=== PATIENT | female | born 1970 | race Hispanic/Latino ===

== ENCOUNTER 2019-05-18 20:28 | Emergency (ER) | payer OTHER, SELFPAY ==
--- NOTE | 2019-05-18 21:04 | RAD ---
EXAM: Chest PA and lateral: HISTORY: Shortness of breath following an pneumonia diagnosis COMPARISON: 05/29/2018 FINDINGS: Heart size:Within normal limits. Lungs:Clear of acute process. No confluent pneumonia, overt edema, pleural effusion, or other acute process. IMPRESSION: No significant acute intrathoracic disease.
[2019-05-18 21:42] LABS: #Eosinphils 0.4 thou/uL (0.0-0.7); #Lymphocytes 3.1 thou/uL (1.20-3.40); #Monocytes 0.6 thou/uL (0.11-0.59); #Neutrophils 7.4 thou/uL (1.40-6.50); %Basophils 0.3 % (0.0-1.0); %Eosinophils 3.5 % (0.0-10.0); %Monocytes 5.4 % (0.0-10.0); %Neutrophils 63.9 % (42.0-75.0); Hemoglobin 11.7 g/dL (12.0-16.0); Mean Corpuscular HGB CONC 32.6 g/dL (32.0-36.0); Mean Corpuscular Hemoglobin 27.1 pg (27.0-31.0); Mean Corpuscular Volume 83.2 fL (78.0-98.0); Mean Platelet Volume 7.2 fL (7.4-10.4); Platelet Count 495 thou/uL (130-400); RBC Distribution Width 13.9 % (11.5-14.5); Red Blood Cell (RBC) Count 4.31 mill/uL (4.20-5.40); White Blood Cell (WBC) Count 11.7 thou/uL (4.8-10.8)
[2019-05-18 22:02] LABS: ALT (SGPT) 19 U/L (8-55); AST (SGOT) 13 U/L (5-34); Albumin 3.7 g/dL (3.5-5.0); Alkaline Phosphatase 87 U/L (40-150); Anion Gap 12 mmol/L (10-20); BUN (Urea Nitrogen) 14 mg/dL (7.0-18.7); Bilirubin, Total 0.2 mg/dL (0.2-1.2); Calc. Creatinine Clearance 0 mL/min (70-130); Calcium 8.4 mg/dL (7.8-10.44); Carbon Dioxide 26 mmol/L (22-29); Chloride 105 mmol/L (98-107); Estimated GFR-MDRD 89; Glucose 92 mg/dL (70-105); Potassium 3.3 mmol/L (3.5-5.1); Protein, Total 6.7 g/dL (6.0-8.3); Sodium 140 mmol/L (136-145)
[2019-05-19] MEDS ORDERED: HYDROcodone/Acetaminophen 10/325 mg Tablet ONE (00:22)
== END 2019-05-19 00:27 | disposition home or self-care (01) ==
LOC: ERS 20:28
DX: J18.9 Pneumonia, unspecified organism (principal); E78.5 Hyperlipidemia, unspecified; M19.90 Unspecified osteoarthritis, unspecified site; F32.9 Major depressive disorder, single episode, unspecified; F17.210 Nicotine dependence, cigarettes, uncomplicated; Z79.899 Other long term (current) drug therapy
CPT/HCPCS: 36415; 71046; 80053; 83880; 84484; 85025; 93005; 94760

== ENCOUNTER 2019-12-27 19:25 | Inpatient (IN) | payer OTHER, SELFPAY ==
[2019-12-27] MEDS ORDERED: Dexamethasone 4 mg/ml Vial ONE (20:17)
[2019-12-27] MEDS ORDERED: predniSONE 20 MG TAB ONE (20:17)
[2019-12-27] MEDS ORDERED: HYDROcodone/Acetaminophen 10/325 mg Tablet ONE (20:18)
[2019-12-27] MEDS ORDERED: Albuterol Sulfate 2.5 mg/0.5 ml Neb ONE (20:18)
--- NOTE | 2019-12-27 20:37 | RAD ---
ONE VIEW CHEST: 12/27/19 COMPARISON: 05/23/10, 05/18/19 HISTORY: Bilateral rib pain. FINDINGS: Normal cardiac silhouette. The costophrenic angles are clear. Bibasilar infiltrates, superimposed upo n chronic change. No pneumothorax. No acute osseous abnormalities. IMPRESSION: 1. Bibasilar infiltrates superimposed upon chronic change. Continued surveillance to ensure reso lution. 2. If there is concern for rib pain, consider rib radiograph series. POS: PPP
[2019-12-27 20:51] LABS: Actual Bicarbonate (HCO3a) 22.4 mEq/L (22-28); Analyzer IN Cardio ER; Base Excess (BEa) -1.2 mEq/L (-2.0 to +3.0); Calcium, Ionized 1.13 mmol/L (1.12-1.30); Carboxyhemoglobin (COHb) 0.6 gm% (0.0-3.0); Hemoglobin (Hb) 13.3 g/dL (12.0-16.0); O2 Tension (PaO2) 75.7 mmHg (80.0-100.0); Potassium - ABG Lab 3.54 mmol/L (3.70-5.30); pH, Arterial 7.44 (7.35-7.45)
[2019-12-27] MEDS ORDERED: Magnesium 2 GM/50 ML BAG (IN WATER) ONE (21:06)
[2019-12-27 21:13] LABS: #Basophils 0.1 thou/uL (0.0-0.2); #Eosinphils 0.4 thou/uL (0.0-0.7); #Lymphocytes 2.1 thou/uL (1.20-3.40); #Monocytes 0.5 thou/uL (0.11-0.59); #Neutrophils 11.9 thou/uL (1.40-6.50); %Basophils 0.5 % (0.0-1.0); %Eosinophils 2.8 % (0.0-10.0); %Lymphocytes 13.7 % (21.0-51.0); %Monocytes 3.3 % (0.0-10.0); %Neutrophils 79.7 % (42.0-75.0); Hemoglobin 12.8 g/dL (12.0-16.0); Mean Corpuscular HGB CONC 32.2 g/dL (32.0-36.0); Mean Corpuscular Hemoglobin 28.2 pg (27.0-31.0); Mean Corpuscular Volume 87.6 fL (78.0-98.0); Mean Platelet Volume 8.6 fL (7.4-10.4); Platelet Count 311 thou/uL (130-400); RBC Distribution Width 13.8 % (11.5-14.5); Red Blood Cell (RBC) Count 4.55 mill/uL (4.20-5.40); White Blood Cell (WBC) Count 14.9 thou/uL (4.8-10.8)
[2019-12-27 21:35] LABS: ALT (SGPT) 8 U/L (8-55); AST (SGOT) 14 U/L (5-34); Albumin 3.5 g/dL (3.5-5.0); Alkaline Phosphatase 85 U/L (40-110); Anion Gap 14 mmol/L (10-20); BUN (Urea Nitrogen) 7 mg/dL (7.0-18.7); Bilirubin, Total 0.3 mg/dL (0.2-1.2); Calc. Creatinine Clearance 0 mL/min (70-130); Calcium 8.2 mg/dL (7.8-10.44); Carbon Dioxide 21 mmol/L (22-29); Chloride 110 mmol/L (98-107); Estimated GFR-MDRD Greater than 90; Globulin 2.7 g/dL (2.4-3.5); Glucose 102 mg/dL (70-105); Potassium 3.6 mmol/L (3.5-5.1); Protein, Total 6.2 g/dL (6.0-8.3); Sodium 141 mmol/L (136-145)
[2019-12-27] MEDS ORDERED: Bacteriostatic Water 30 ML VIAL FS PRN (22:23)
--- NOTE | 2019-12-27 23:20 | PDOC.EVN ---
Event Note - Event Note Event Note: [id number] HP
[2019-12-28 00:11] VITALS: BMI 40.8
[2019-12-28] MEDS: cefTRIAXone\\ROCEPHIN 1 GM in Sodium Chloride 0.9% 100 ML IVPB SCH ×2 (00:30→22:20)
[2019-12-28] MEDS: Azithromycin 500 MG in Sodium Chloride 0.9% 250 ML 250 ML IVPB SCH ×2 (00:31→23:59)
[2019-12-28] MEDS: methylPREDNISolone Sod Succ 40 MG VIAL IVP SCH ×4 (01:45→18:49)
--- NOTE | 2019-12-28 02:45 | HP ---
CHIEF COMPLAINT: Shortness of breath. HISTORY OF PRESENT ILLNESS: Ms. Sepulveda is a 49-year-old female with long history of cigarette smoking, hypertension, arthritis, presents to the emergency room with coughing, shortness of breath, and bilateral rib pain. The patient also has been having upper respiratory tract symptoms with nasal congestion, runny nose, sneezing, fever, and productive cough. The shortness of breath is worse with exertion. In the emergency room, the patient was in respiratory distress, wheezing. The patient was given prednisone, antibiotic, Levaquin, magnesium, and breathing treatments. Some minimal improvement. The patient is being admitted to hospital for further management. PAST MEDICAL HISTORY: 1. Cigarette smoking. 2. Hypertension. 3. Hyperlipidemia. 4. Arthritis. PAST SURGICAL HISTORY: 1. Tubal ligation. 2. section. 3. Left oophorectomy. PAST PSYCHIATRIC HISTORY: Depression. SOCIAL HISTORY: The patient has a long history of smoking. She quit one week ago. FAMILY HISTORY: Reviewed and noncontributory. ALLERGIES: ALLERGIC TO KETOROLAC, PENICILLIN, TORADOL, AND VANCOMYCIN. HOME MEDICATIONS: Please see home medication reconciliation form for updated medications. PHYSICAL EXAMINATION: GENERAL: The patient is awake, alert, in moderate distress. VITAL SIGNS: Blood pressure 108/63, pulse is 100, respiratory rate is 20, temperature 98.5, and oxygen saturation is 98%. HEAD: Normocephalic, atraumatic. NECK: Supple. CHEST: Bilateral expiratory wheeze. HEART: S1, S2. Regular. ABDOMEN: Soft, nontender. Bowel sounds present. NEUROLOGIC: Awake, alert, and oriented x3. PSYCH: Normal mood. EXTREMITIES: No clubbing or cyanosis. GENITOURINARY: No suprapubic tenderness. No flank tenderness. LABORATORY DATA: WBC count 14.9. ABG: PH 7.44, pCO2 74, and PO2 75. ASSESSMENT: 1. Acute exacerbation of chronic obstructive pulmonary disease. 2. Long history of cigarette smoking, quit one week ago. 3. Hypertension. 4. Hyperlipidemia. 5. Obesity. PLAN: 1. Admit. 2. Continue with bronchodilators schedule as needed. 3. IV steroids. 4. Oxygen to keep saturation more than 92%. 5. Empiric antibiotics. 6. Reconcile home medications. 7. DVT prophylaxis as appropriate. 8. Expected length of stay 2 midnights or more. Job ID: [id number]
--- NOTE | 2019-12-28 11:26 | CON ---
DATE OF CONSULTATION: HISTORY OF PRESENT ILLNESS: Rosina Sepulveda is a 49-year-old morbidly obese female, 46 kg, who presented with several-day history of low-grade fever, cough, congestion, yellow sputum. Initially, started with a head cold, settled in the chest with significant chest pain post coughing. X-ray taken shows bilateral lower lobe infiltrates. She says she wheezes when she catches a cold. She has smoked up until about a month ago a pack a day. Three prior histories of pneumonia, but no history of TB. Asthmatic condition when she has a cold. PAST MEDICAL HISTORY: Depression, arthritis, and hyperlipidemia. PAST SURGICAL HISTORY: Including , oophorectomy. SOCIAL HISTORY: Unemployed. Lives with , who is disabled. ALLERGIES: PENICILLIN, VANCOMYCIN. REVIEW OF SYSTEMS: Otherwise, 10-point negative. PHYSICAL EXAMINATION: VITAL SIGNS: On examination, temperature 97, pulse 91, respiratory rate 18, saturations are 100% on room air, and blood pressure 119/70. CHEST: Minimal wheezing. CARDIAC: Normal S1 and S2. No gallops. ABDOMEN: No masses. LABORATORY DATA: Blood gases were done, which shows a pO2 of 75, pCO2 of 34%, pH of 7.40. Lytes are normal. White count is 14,000, H and H of 12 and 39, left shift. ASSESSMENT: 1. Chronic obstructive pulmonary disease exacerbation. 2. Bronchitis. 3. Pneumonia. 4. Former smoker. 5. Depression. 6. Obesity. PLAN: Agree with present antibiotics. PT, supportive care, steroids. Switch over to oral medication in the next 24 hours. She is to refrain from smoking. We will follow. Job ID: [id number]
--- NOTE | 2019-12-28 11:51 | PDOC.HOSPP ---
- Subjective Encounter Date: 12/28/19 Encounter Time: 11:49 Subjective: Patient seen and examined Respiratory failure/COPD exacerbation. Reports feeling much better. Reports productive cough, denies fever or chills. No new complaints. No overnight events - Objective Vital Signs & Weight: Vital Signs (12 hours) Temp Pulse Resp BP Pulse Ox 12/28/19 11:04 98 F 100 18 121/75 95 12/28/19 10:49 92 20 92 L 12/28/19 08:48 97.1 F L 93 L 12/28/19 08:00 93 L 12/28/19 07:54 96.4 F L 91 18 119/70 92 L 12/28/19 07:07 91 16 97 12/28/19 04:00 98.1 F 91 18 111/69 94 L 12/28/19 02:26 98 Weight Weight 238 lb I&O: 12/27/19 12/28/19 12/29/19 06:59 06:59 06:59 Intake Total 1250 Balance 1250 Result Diagrams: 12/27/19 21:02 12/27/19 21:02 Hospitalist ROS - Medication Medications: Active Medications Generic Name Dose Route Start Last Admin Trade Name Freq PRN Reason Stop Dose Admin Albuterol/Ipratropium 3 ml 12/28/19 11:00 12/28/19 10:49 Duoneb NEB 3 ml [id number] GEOVANY Administration Azithromycin 500 mg/ Sodium 250 mls @ 250 mls/hr 12/27/19 23:00 12/28/19 00: 31 Chloride IVPB 250 mls Q24HR GEOVANY Administration Ceftriaxone Sodium 1 gm/ 100 mls @ 200 mls/hr 12/27/19 22:30 12/28/19 00:30 Sodium Chloride IVPB 100 mls Q24HR GEOVANY Administration Methylprednisolone Sodium Succinate 40 mg 12/27/19 23:59 12/28/19 11:42 Solu-Medrol IVP 40 mg Q6HR GEOVANY Administration Hosp A/P - Plan Impression Acute hypoxic respiratory failure (POA) COPD exacerbation Tobacco abuse 36 years, quit 1 week ago HTN HLD Morbid Obesity BMI 40.9 Rib pain, resolved Arthritis Depression Suspected SHERRI Plan: Continue antibiotics and nebs Change steroids to po Add mucinex Add GI prophlaxis Appreciate pulmonary consult Consult Walking program Continue home medications Consider sleep study as outpatient.
[2019-12-28] MEDS ORDERED: methylPREDNISolone Sod Succ 40 MG VIAL IVP SCH (12:00)
[2019-12-28] MEDS ORDERED: predniSONE 20 MG TAB PO SCH (17:00)
[2019-12-28] MEDS ORDERED: Acetaminophen 325 MG TAB PO PRN (17:38)
[2019-12-28] MEDS: traMADol HCl 50 MG TAB PO PRN ×2 (17:47→22:21)
[2019-12-28] MEDS: Mometasone/Formoterol 120 PUFF INHALER INH SCH (18:47)
[2019-12-28] MEDS: guaiFENesin ER 600 MG TAB PO SCH (20:23)
[2019-12-28] MEDS: Famotidine 20 MG TAB PO SCH (20:23)
[2019-12-29] MEDS: methylPREDNISolone Sod Succ 40 MG VIAL IVP SCH ×3 (00:49→11:56)
[2019-12-29] MEDS: Mometasone/Formoterol 120 PUFF INHALER INH SCH (06:19)
[2019-12-29] MEDS: Famotidine 20 MG TAB PO SCH (08:08)
[2019-12-29] MEDS: guaiFENesin ER 600 MG TAB PO SCH (08:08)
--- NOTE | 2019-12-29 11:59 | PRG ---
DATE OF SERVICE: 12/29/2019 SUBJECTIVE: This morning, she is better. She wants to go home. OBJECTIVE: VITAL SIGNS: Temperature 98, pulse 80, respiratory rate 20, saturations 95% on room air, and blood pressure 124/67. CHEST: Minimal wheezing. CARDIAC: Normal S1 and S2. No gallops. ABDOMEN: No masses. ASSESSMENT: Chronic obstructive pulmonary disease exacerbation and bronchitis, much improved. PLAN: Pulmonary-garcia, she can discontinue all IV antibiotics and steroids. She will be discharged home on tapering dose of steroids, Dulera inhaler, rescue inhaler, and antibiotics. Follow up with the primary care physician. Job ID: [id number]
[2019-12-29 14:05] VITALS: BP 130/85; TEMP 98.5
--- NOTE | 2019-12-29 20:12 | DIS ---
DATE OF ADMISSION: 12/27/2019 DATE OF DISCHARGE: 12/29/2019 DISCHARGE DISPOSITION: Home. FOLLOWUP: 1. Follow up with primary care physician at [facility] in 1 week. 2. Follow up with Pulmonary as needed. ALLERGIES: THE PATIENT IS ALLERGIC TO PENICILLIN, VANCOMYCIN, AND TORADOL. DISCHARGE MEDICATIONS: 1. Prednisone taper. 2. Azithromycin 250 mg daily for three days. 3. All other home medications were left unchanged. SIGNIFICANT LABORATORY DATA: WBC 14.9. ABG showed pH 7.44 with pCO2 of 34, pO2 of 75.7 with bicarbonate of 22. Sodium 141 and potassium 3.6. DIAGNOSTIC DATA: Chest x-ray was negative for infiltrate. BRIEF HOSPITAL COURSE: The patient is a 49-year-old female with probable COPD with long history of tobacco abuse, presented to the emergency room with worsening shortness of breath along with wheezing and chest tightness. Her workup was consistent with acute hypoxic respiratory failure secondary to COPD exacerbation. The patient was evaluated by PulmonaryDr. Varela. She was placed on oxygen, nebulizer treatment, IV steroids, and antibiotics. Antibiotics and steroids have been changed to p.o. per PulmonaryDr. Varela. She has been cleared by discharge by Pulmonary. FINAL DIAGNOSES: 1. Acute hypoxic respiratory failure secondary to chronic obstructive pulmonary disease exacerbation. 2. History of tobacco abuse for 36 years. The patient quit recently. 3. Hypertension. 4. Hyperlipidemia. 5. Morbid obesity with a BMI of 40.9. 6. Suspected sleep apnea. 7. Musculoskeletal rib cage pain, resolved. 8. Degenerative joint disease. 9. Depression, mild, stable. 10. Penicillin allergy. 11. Lifestyle modification was emphasized. The patient and the family understands the above plan of care. Job ID: [id number]
--- NOTE | 2019-12-31 21:36 | PQF ---
VIDHI Foy MD [id number] CLINICAL DOCUMENTATION CLARIFICATION FORM: POST DISCHARGE Addendum to original discharge summary date: ____ Late entry note date: __ DATE: 12/31/2019 ATTN: Vidhi Fairchild Please exercise your independent, professional judgment in responding to the clarification form. Clinical indicators are provided on the bottom of this form for your review Please check appropriate box(s) to clarify if the following diagnosis has been ruled in or ruled out: PNEUMONIA [ ] Ruled in diagnosis [ ] Continue to treat [ ] Resolved [ x ] Ruled out diagnosis [ ] Cannot rule out diagnosis [ ] Other diagnosis [ ] Unable to determine In addition, please specify: Present on Admission (POA): [ ] Yes [ ] No [ ] Unable to determine For continuity of documentation, please document condition throughout progress notes and discharge summary. Thank You. CLINICAL INDICATORS - SIGNS / SYMPTOMS / LABS Consult 12/28 "Pneumonia" Chest Xray 12/27 "Bibasilar infiltrates,superimposed upon chronic change" 12/27 "CC:Shortness of breath" 12/27 "presents in the ER with cough, SOB and rib pain" HP 12/27 "patient also has been having URI symptoms with nasal congestion,runny nose, sneezing,fever and productive cough" Consult 12/28 "history of low grade fever,cough,congestion,yellow sputum" DS 12/29 "acute hypoxic respiratory failure secondary to COPD exacerbation" RISK FACTORS HP 12/27-Former Smoker HP 12/27-COPD exacerbation HP 12/27-Morbid obesity Consult 12/28-Bronchitis DS 12/29-SHERRI TREATMENTS Collected 12/27-Chest Xray HP 12/27-Oxygen Consult 12/28-Pulmonology consult MAR 12/27-Prednisone 20mg Oral MAR 12/27-Ventolin 2.5mg Neb MAR 12/27-Duoneb 3ml Neb MAR 12/27-Levaquin 750mg IV JAN 20-Rocephin 1gm IV (This form is maintained as a part of the permanent medical record) 2014 [employer]. All Rights Reserved [email or web address]
== END 2019-12-29 14:07 | disposition home or self-care (01) | DRG 189 ==
LOC: ERS 19:25 → T4-B 23:26
PROVIDERS: ADMIT Internal Medicine; ATTEND Internal Medicine
DX: J96.21 Acute and chronic respiratory failure with hypoxia (principal); J44.1 Chronic obstructive pulmonary disease with (acute) exacerbation; F32.0 Major depressive disorder, single episode, mild; J44.0 Chronic obstructive pulmonary disease with (acute) lower respiratory infection; Z68.41 Body mass index [BMI] 40.0-44.9, adult; I10 Essential (primary) hypertension; M19.90 Unspecified osteoarthritis, unspecified site; E78.5 Hyperlipidemia, unspecified; E66.01 Morbid (severe) obesity due to excess calories; J40 Bronchitis, not specified as acute or chronic; G47.33 Obstructive sleep apnea (adult) (pediatric); Z87.891 Personal history of nicotine dependence; Z98.51 Tubal ligation status; Z90.721 Acquired absence of ovaries, unilateral; Z88.1 Allergy status to other antibiotic agents; Z88.5 Allergy status to narcotic agent; Z88.0 Allergy status to penicillin; Z88.8 Allergy status to other drugs, medicaments and biological substances; Z79.51 Long term (current) use of inhaled steroids; Z79.899 Other long term (current) drug therapy; Z87.01 Personal history of pneumonia (recurrent)
CPT/HCPCS: 36415; 71045; 80053; 82805; 83605; 85025; 87040; 87804; 94640; 96365; 96367; 96372; J0456; J0696; J1100; J1956; J2920; J3475; J3490; J7050; J7512; J7611; J7620

== ENCOUNTER 2020-05-31 14:17 | Emergency (ER) | payer SELFPAY ==
--- NOTE | 2020-05-31 14:59 | RAD ---
EXAM: LEFT SHOULDER THREE VIEWS: 05/31/20 HISTORY: Left shoulder pain without injury. FINDINGS/IMPRESSION: No fracture, dislocation, or other significant acute osseous process. POS: RRE
[2020-05-31] MEDS ORDERED: HYDROcodone/Acetaminophen 5/325 mg Tablet ONE (16:12)
== END 2020-05-31 16:15 | disposition home or self-care (01) ==
LOC: ERS 14:17
DX: M62.838 Other muscle spasm (principal); M25.512 Pain in left shoulder; I10 Essential (primary) hypertension; M19.90 Unspecified osteoarthritis, unspecified site; F32.9 Major depressive disorder, single episode, unspecified; E78.5 Hyperlipidemia, unspecified; Z87.891 Personal history of nicotine dependence; Z79.899 Other long term (current) drug therapy

== ENCOUNTER 2020-10-21 13:54 | Emergency (ER) | payer SELFPAY ==
[2020-10-21] MEDS ORDERED: Morphine 4 MG/ML VIAL ONE (16:03)
[2020-10-21] MEDS ORDERED: Diazepam 5 MG TAB ONE (17:16)
--- NOTE | 2020-10-21 17:32 | RAD ---
LUMBAR SPINE: 10/21/20 Three views. HISTORY: Injury with back pain. Lumbar vertebrae maintain normal height and alignment. Rudimentary ribs at L1. S1 is transitional. Th e disc spaces are preserved. No evidence of spondylolisthesis. IMPRESSION: 1. Transitional vertebra as described above. 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 2. Lumbar spine otherwise unremarkable. POS: AGW
== END 2020-10-21 17:33 | disposition home or self-care (01) ==
LOC: ERS 13:54
DX: S39.012A Strain of muscle, fascia and tendon of lower back, initial encounter (principal); I10 Essential (primary) hypertension; E78.5 Hyperlipidemia, unspecified; F17.210 Nicotine dependence, cigarettes, uncomplicated; W50.1XXA Accidental kick by another person, initial encounter
CPT/HCPCS: 72100; 96372; J2270

== ENCOUNTER 2021-08-23 21:19 | Emergency (ER) | payer SELFPAY ==
[2021-08-23] MEDS ORDERED: Orphenadrine Citrate 60 MG/2 ML VIAL IM SCH (23:15)
[2021-08-24] MEDS ORDERED: Ondansetron ODT 8 MG TAB ONE
[2021-08-24] MEDS ORDERED: Ketorolac Tromethamine 30 MG/ML VIAL ONE (00:02)
== END 2021-08-24 00:38 | disposition home or self-care (01) ==
LOC: ERS 21:19
DX: M54.50 Low back pain, unspecified (principal); I10 Essential (primary) hypertension; E78.5 Hyperlipidemia, unspecified; M19.90 Unspecified osteoarthritis, unspecified site; F17.210 Nicotine dependence, cigarettes, uncomplicated; Z79.899 Other long term (current) drug therapy
CPT/HCPCS: 72100; 96372; J1885; J2360

== ENCOUNTER 2023-01-28 08:56 | Observation (INO) | payer BC, SELFPAY ==
[2023-01-28 09:30] LABS: #Basophils 0.1 thou/uL (0.0-0.2); #Eosinphils 0.2 thou/uL (0.0-0.7); #Lymphocytes 1.9 thou/uL (1.20-3.40); #Monocytes 0.9 thou/uL (0.11-0.59); #Neutrophils 14.7 thou/uL (1.40-6.50); %Basophils 0.3 % (0.0-1.0); %Eosinophils 0.9 % (0.0-10.0); %Lymphocytes 10.9 % (21.0-51.0); %Monocytes 4.9 % (0.0-10.0); %Neutrophils 83.1 % (42.0-75.0); Hemoglobin 15.9 g/dL (12.0-16.0); Mean Corpuscular HGB CONC 31.4 g/dL (32.0-36.0); Mean Corpuscular Hemoglobin 28.8 pg (27.0-31.0); Mean Corpuscular Volume 91.8 fl (78.0-98.0); Mean Platelet Volume 8.3 fL (7.4-10.4); Platelet Count 301 10x3/uL (130-400); White Blood Cell (WBC) Count 17.7 10x3/uL (4.8-10.8)
[2023-01-28 09:49] LABS: ALT (SGPT) 15 U/L (8-55); AST (SGOT) 13 U/L (5-34); Albumin 4.3 g/dL (3.5-5.0); Alkaline Phosphatase 87 U/L (40-110); Anion Gap 14 mmol/L (10-20); BUN (Urea Nitrogen) 8 mg/dL (9.8-20.1); Bilirubin, Total 0.5 mg/dL (0.2-1.2); Calc. Creatinine Clearance 0 mL/min (70-130); Calcium 9.3 mg/dL (7.8-10.44); Carbon Dioxide 25 mmol/L (22-29); Chloride 105 mmol/L (98-107); Estimated GFR 86; Globulin 2.9 g/dL (2.4-3.5); Glucose 96 mg/dL (70-105); Potassium 4.6 mmol/L (3.5-5.1); Protein, Total 7.2 g/dL (6.0-8.3); Sodium 139 mmol/L (136-145)
[2023-01-28 09:50] LABS: Acetaminophen Less than 10.0 mcg/mL (10.0-30.0); Alcohol Less than 10 mg/dL (Less than 10); Salicylate Less than 8.0 mg/dL (15.0-30.0)
[2023-01-28] MEDS ORDERED: Ondansetron ODT 4 MG TAB PO PRN (11:10)
[2023-01-28] MEDS ORDERED: Acetaminophen 325 MG TAB PO PRN (11:10)
[2023-01-28] MEDS ORDERED: Calcium Carbonate 500 MG ChewTAB PO PRN (11:10)
[2023-01-28] MEDS ORDERED: Ondansetron PF 4 MG/2 ML Vial IVP PRN (11:10)
[2023-01-28] MEDS ORDERED: Labetalol HCl 100 MG/20 ML VIAL SLOW IVP PRN (11:13)
[2023-01-28] MEDS ORDERED: Multivitamins, Adult 10 ML, Folic Acid 1 MG, Thiamine HCl 100 MG in Dextrose 5 %-0.45 %... IV SCH (11:15)
[2023-01-28] MEDS ORDERED: Sodium Chloride 0.9% 1,000 ML IV SCH (11:15)
[2023-01-28] MEDS ORDERED: Aspirin Chewable 81 MG TAB ONE (11:34)
[2023-01-28 11:58] LABS: Bacteria/HPF None Seen HPF (None Seen); Bilirubin Negative (Negative); Blood, Urine Trace (Negative); Clarity Clear (Clear); Glucose, Urine (Dipstick) Normal (Negative); Ketone, Urine Negative (Negative); Leukocyte Negative Leu/uL (Negative); Nitrite Negative (Negative); Protein, Urine (Dipstick) Negative (Neg-Trace); Squamous Epithelial 0-3 HPF (0-3); Urobilinogen Normal mg/dL (Less than 2); WBC/HPF 0-3 HPF (0-3)
[2023-01-28 11:59] LABS: Magnesium 2.1 mg/dL (1.6-2.6)
[2023-01-28 12:00] LABS: Specific Gravity, Urine 1.061 (1.002-1.036)
[2023-01-28 12:06] LABS: Amphetamine Not Detected (NotDetected); Barbiturates Screen Not Detected (NotDetected); Benzodiazepine Screen Not Detected (NotDetected); Cocaine Metabolite Screen Not Detected (NotDetected); Methadone Not Detected (NotDetected); Methamphetamine Not Detected (NotDetected); Opiate Screen Detected (NotDetected); Oxycodone Screen Not Detected (NotDetected); Phencyclidine (PCP) Not Detected (NotDetected); THC/Cannabinoid Screen Not Detected (NotDetected); Tricyclic Screen Not Detected (NotDetected)
[2023-01-28] MEDS ORDERED: Folic Acid 1 MG, Thiamine HCl 100 MG in Dextrose 5 %-0.45 % NaCl 1,000 ML IV SCH (13:30)
[2023-01-28 13:50] VITALS: BMI 35.6
[2023-01-28] MEDS ORDERED: ISOVUE-370 76%-LOCM 1 ML ONE (14:52)
[2023-01-28] MEDS ORDERED: traMADol HCl 50 MG TAB PO PRN (17:03)
[2023-01-28] MEDS: Famotidine 20 MG TAB PO SCH (20:13)
[2023-01-28] MEDS ORDERED: Atorvastatin Calcium 40 MG TAB PO SCH (21:00)
[2023-01-29 04:24] VITALS: TEMP 97.9
[2023-01-29 06:01] LABS: #Basophils 0.1 thou/uL (0.0-0.2); #Eosinphils 0.3 thou/uL (0.0-0.7); #Lymphocytes 2.2 thou/uL (1.20-3.40); #Monocytes 0.9 thou/uL (0.11-0.59); #Neutrophils 6.5 thou/uL (1.40-6.50); %Basophils 0.6 % (0.0-1.0); %Eosinophils 3.4 % (0.0-10.0); %Lymphocytes 21.9 % (21.0-51.0); %Neutrophils 65.1 % (42.0-75.0); Hemoglobin 15.3 g/dL (12.0-16.0); Mean Corpuscular Hemoglobin 30.1 pg (27.0-31.0); Mean Corpuscular Volume 91.1 fl (78.0-98.0); Mean Platelet Volume 8.5 fL (7.4-10.4); Platelet Count 279 10x3/uL (130-400); RBC Distribution Width 12.8 % (11.5-14.5); Red Blood Cell (RBC) Count 5.08 mill/uL (4.20-5.40)
[2023-01-29 06:51] LABS: ALT (SGPT) 12 U/L (8-55); AST (SGOT) 13 U/L (5-34); Albumin 3.6 g/dL (3.5-5.0); Alkaline Phosphatase 80 U/L (40-110); Anion Gap 13 mmol/L (10-20); BUN (Urea Nitrogen) 11 mg/dL (9.8-20.1); Bilirubin, Total 0.4 mg/dL (0.2-1.2); Calc. Creatinine Clearance 142 mL/min (70-130); Calcium 9.1 mg/dL (7.8-10.44); Carbon Dioxide 22 mmol/L (22-29); Cardiac Risk 4.4 (Less than 4.5); Chloride 109 mmol/L (98-107); Cholesterol 150 mg/dl (< 200 Desired); Estimated GFR 104; Globulin 2.6 g/dL (2.4-3.5); Glucose 90 mg/dL (70-105); HDL Cholesterol 34 mg/dL (>60 Neg Risk); LDL Cholesterol, Calculated 83 mg/dL; Protein, Total 6.2 g/dL (6.0-8.3); Sodium 140 mmol/L (136-145); Triglycerides 163 mg/dL (Less than 150)
[2023-01-29] MEDS: Famotidine 20 MG TAB PO SCH (08:38)
[2023-01-29] MEDS ORDERED: Aspirin 81 mg Enteric Coated Tablet PO SCH (09:00)
[2023-01-29 11:15] VITALS: BP 122/74
[2023-01-29 12:12] LABS: Hemoglobin A1c 5.1 % (4.0-6.0)
== END 2023-01-29 12:29 | disposition home or self-care (01) ==
LOC: ERS 08:56 → NEURO 11:10
PROVIDERS: ADMIT Internal Medicine; ATTEND Internal Medicine
DX: R41.0 Disorientation, unspecified (principal); I10 Essential (primary) hypertension; E78.5 Hyperlipidemia, unspecified; F17.210 Nicotine dependence, cigarettes, uncomplicated; M19.90 Unspecified osteoarthritis, unspecified site; D72.829 Elevated white blood cell count, unspecified; I08.1 Rheumatic disorders of both mitral and tricuspid valves; Z79.899 Other long term (current) drug therapy; Z88.0 Allergy status to penicillin; Z88.1 Allergy status to other antibiotic agents; Z88.6 Allergy status to analgesic agent; Z20.822 Contact with and (suspected) exposure to COVID-19
CPT/HCPCS: 36415; 36416; 70450; 70496; 70498; 70551; 71045; 80053; 80061; 80306; 80307; 81003; 81015; 82140; 83036; 83735; 84146; 84484; 85025; 93005; 93306; 96365; 96366; G0378; J3411; J7042; Q9966; U0003; U0005

== ENCOUNTER 2023-09-01 09:47 | Emergency (ER) | payer BC, SELFPAY ==
[2023-09-01] MEDS ORDERED: Dexameth. Sod Phosp. 10 MG/ML (CHEMO USE ONLY) ONE (10:13)
[2023-09-01 10:56] LABS: SARS-CoV-2 NAA Rapid Test Not Detected (NotDetected)
[2023-09-01 11:02] LABS: Bacteria/HPF None Seen HPF (None Seen); Bilirubin Negative (Negative); Blood, Urine 2+ (Negative); CAUTI Indications for Culture Dysuria,urgency,freq; Clarity Clear (Clear); Glucose, Urine (Dipstick) Normal (Negative); Ketone, Urine Negative (Negative); Leukocyte Negative Leu/uL (Negative); Nitrite Negative (Negative); Protein, Urine (Dipstick) Negative (Neg-Trace); Specific Gravity, Urine 1.023 (1.002-1.036); Squamous Epithelial 0-3 HPF (0-3); Urobilinogen Normal mg/dL (Less than 2); WBC/HPF 0-3 HPF (0-3)
[2023-09-01 11:04] LABS: Urine Culture Reflex No No
== END 2023-09-01 11:39 | disposition home or self-care (01) ==
LOC: ERS 09:47
DX: J18.9 Pneumonia, unspecified organism (principal); B34.9 Viral infection, unspecified; E78.5 Hyperlipidemia, unspecified; I10 Essential (primary) hypertension; F17.210 Nicotine dependence, cigarettes, uncomplicated; Z20.822 Contact with and (suspected) exposure to COVID-19
CPT/HCPCS: 71046; 81001; 99285; J1100

== ENCOUNTER 2024-11-18 18:51 | Emergency (ER) | payer SELFPAY ==
[2024-11-18 19:35] LABS: #Basophils 0.04 10x3/uL (0.0-0.2); %Basophils 0.2 % (0.0-1.0); %Eosinophils 1.4 % (0.0-10.0); %Lymphocytes 8.3 % (21.0-51.0); %Monocytes 3.6 % (0.0-10.0); %Neutrophils 86.1 % (42.0-75.0); Hematocrit 50.7 % (36.0-47.0); Hemoglobin 17.4 g/dL (12.0-16.0); Mean Corpuscular HGB CONC 34.3 g/dL (32.0-36.0); Mean Corpuscular Volume 87.4 fL (78.0-98.0); Mean Platelet Volume 10.7 fL (7.4-10.4); Platelet Count 330 10x3/uL (130-400); RBC Distribution Width 13.2 % (11.5-14.5)
[2024-11-18 19:38] LABS: Bilirubin Small (Negative); Blood, Urine Moderate (Negative); Glucose, Urine (Dipstick) Negative (Negative); Ketone, Urine Trace mg/dL (Negative); Leukocyte Trace (Negative); Nitrite Negative (Negative); Protein, Urine (Dipstick) Negative (Neg-Trace); Specific Gravity, Urine 1.025 (1.005-1.030); Urobilinogen 0.2 mg/dL (Less than 2)
[2024-11-18 19:38] LABS: ALT (SGPT) 15 U/L (8-55); AST (SGOT) 14 U/L (5-34); Albumin 4.3 g/dL (3.5-5.0); Alkaline Phosphatase 90 U/L (40-110); Anion Gap 17 mmol/L (10-20); BUN (Urea Nitrogen) 10 mg/dL (9.8-20.1); Bilirubin, Total 0.6 mg/dL (0.2-1.2); Calc. Creatinine Clearance 0 mL/min (70-130); Calcium 9.8 mg/dL (7.8-10.44); Carbon Dioxide 19 mmol/L (22-29); Chloride 110 mmol/L (98-107); Estimated GFR 90; Glucose 87 mg/dL (70-105); Potassium 4.2 mmol/L (3.5-5.1); Protein, Total 7.3 g/dL (6.0-8.3); Sodium 142 mmol/L (136-145)
[2024-11-18 19:39] LABS: Clarity Clear (Clear)
[2024-11-18] MEDS ORDERED: Ondansetron PF 4 MG/2 ML Vial ONE (19:42)
[2024-11-18 19:43] LABS: CAUTI Indications for Culture Fever or rigors; RBC/HPF 0-3 HPF (0-3); Squamous Epithelial 0-3 HPF (0-3); WBC/HPF 0-3 HPF (0-3)
[2024-11-18 19:44] LABS: Bacteria/HPF Rare-Few HPF (None Seen); Urine Culture Reflex No No
[2024-11-18] MEDS ORDERED: Ketorolac Tromethamine 30 MG (1 mL) VIAL ONE (19:49)
[2024-11-18] MEDS ORDERED: Morphine 4 MG/ML VIAL ONE (19:52)
[2024-11-18] MEDS ORDERED: Dicyclomine 20 MG TAB ONE (21:50)
[2024-11-19 01:17] LABS: Campy jejuni + coli by PCR Negative (Negative); STEC Shiga Toxin 1+2 Negative (Negative); Salmonella spp. by PCR Negative (Negative); Shigella spp + EIEC by PCR Negative (Negative)
== END 2024-11-18 22:28 | disposition home or self-care (01) ==
LOC: ERS 18:51
DX: R19.7 Diarrhea, unspecified (principal); I10 Essential (primary) hypertension; F17.210 Nicotine dependence, cigarettes, uncomplicated
CPT/HCPCS: 36415; 74176; 80053; 81001; 82274; 85025; 87428; 87505; 96374; 96375; J1885; J2272; J2405

== ENCOUNTER 2025-07-21 18:22 | Emergency (ER) | payer OTHER ==
[2025-07-21] MEDS ORDERED: Ondansetron PF 4 MG/2 ML Vial ONE ×2 (19:39→20:45)
[2025-07-21 19:59] LABS: #Basophils 0.03 10x3/uL (0.0-0.2); #Eosinophils 0.08 10x3/uL (0.0-0.7); #Monocytes 0.78 10x3/uL (0.11-0.59); #Neutrophils 2.66 10x3/uL (1.40-6.50); %Basophils 0.6 % (0.0-1.0); %Eosinophils 1.5 % (0.0-10.0); %Lymphocytes 34.0 % (21.0-51.0); %Monocytes 14.5 % (0.0-10.0); %Neutrophils 49.2 % (42.0-75.0); Hematocrit 42.8 % (36.0-47.0); Hemoglobin 13.9 g/dL (12.0-16.0); Mean Corpuscular Hemoglobin 28.9 pg (27.0-31.0); Mean Corpuscular Volume 89.0 fL (78.0-98.0); Platelet Count 204 10x3/uL (130-400); Red Blood Cell (RBC) Count 4.81 mill/uL (4.20-5.40); White Blood Cell (WBC) Count 5.39 10x3/uL (4.8-10.8)
[2025-07-21 20:08] LABS: Bacteria/HPF None Seen HPF (None Seen); CAUTI Indications for Culture Pelvic or flank pain; Glucose, Urine (Dipstick) Normal (Negative); Leukocyte Negative Leu/uL (Negative); Protein, Urine (Dipstick) Negative (Neg-Trace); Specific Gravity, Urine 1.020 (1.002-1.036); WBC/HPF 0-3 HPF (0-3)
[2025-07-21 20:09] LABS: Urine Culture Reflex No No
[2025-07-21 20:18] LABS: ALT (SGPT) 17 U/L (Less than 34); AST (SGOT) 22 U/L (11-34); Albumin 3.5 g/dL (3.1-4.5); Alkaline Phosphatase 75 U/L (40-110); Anion Gap 11 mmol/L (10-20); BUN (Urea Nitrogen) 7 mg/dL (9.8-20.1); Bilirubin, Total 0.2 mg/dL (0.3-1.2); Calc. Creatinine Clearance 0 mL/min (70-130); Calcium 8.3 mg/dL (7.8-10.44); Carbon Dioxide 26 mmol/L (22-29); Chloride 109 mmol/L (98-107); Globulin 2.2 g/dL (2.4-3.5); Glucose 89 mg/dL (70-105); Lipase 31 U/L (8-78); Potassium 3.7 mmol/L (3.5-5.1); Sodium 142 mmol/L (136-145)
[2025-07-21] MEDS ORDERED: Acetaminophen 325 MG TAB ONE (22:06)
== END 2025-07-21 22:18 ==
LOC: ERS 18:22
DX: U07.1 COVID-19 (principal); R10.31 Right lower quadrant pain; I10 Essential (primary) hypertension; F17.210 Nicotine dependence, cigarettes, uncomplicated
CPT/HCPCS: 74177; 80053; 81001; 83690; 85025; 87428; 96361; 96372; 96374; 96375; 96376; J2405; J3010

== ENCOUNTER 2025-08-21 19:59 | Emergency (ER) | payer OTHER | END 2025-08-21 20:14 | disposition left against medical advice (07) | LOC: ERS 19:59 | DX: Z53.21 Procedure and treatment not carried out due to patient leaving prior to being seen by health care provider (principal) ==